=== PATIENT | female | born 1980 ===

== ENCOUNTER 2016-07-03 09:15 | Outpatient (CLI) | payer BC ==
--- NOTE | 2016-07-03 12:56 | Ultrasound Report ---
THYROID ULTRASOUND:07/03/16 09:15:00 CLINICAL: Goiter. FINDINGS: High-resolution ultrasound demonstrated a mildly enlarged thyroid. The right lobe measures 4.4 x 1.6 x 2.6cm. The left lobe measures 4.8 x 1.9 x 2.1. The isthmus measures 7.0 mm AP thickness. Mildly heterogeneous diffuse echo pattern but no nodules or cysts identified. No mass. IMPRESSION: Mild thyroid enlargement with a subtle micronodular pattern.
== END 2016-07-03 09:16 | disposition home or self-care (01) ==
LOC: SPVWC 09:15
PROVIDERS: ATTEND Internal Medicine
DX: E04.9 Nontoxic goiter, unspecified (principal)
CPT/HCPCS: 76536